=== PATIENT | female | born 1965 ===

== ENCOUNTER 2023-08-11 14:10 | Outpatient (AMB) | payer OTHER, SELFPAY ==
--- NOTE | 2023-08-11 14:55 | A.OFFVIS_ITS ---
Intake Vital Signs 08/11/23 14:56 Height 5 ft 3 in Weight 125 lb 3.561 oz BMI 22.2 BP 122/70 Blood Pressure Location Rt brachial Position Sitting Pulse 70 Pulse Source Pulse Oximeter Temp 97.3 F Temp Source Skin Pulse Oximetry (%) 97 Intake Visit Reasons: Fibromyalgia Intake Note: New pt presents today for FM consult. Previously seen by Dr Castillo in 2020. C/o pain in multiple areas. Pain started approx 7 years ago. 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 Accompanied by: Self / Same As Patient Allergies latex Adverse Reaction (Unknown, Verified 08/11/23 14:58) Unknown mepivacaine [From Carbocaine] Adverse Reaction (Unknown, Verified 08/11/23 14:58) Unknown propranolol Adverse Reaction (Unknown, Verified 08/11/23 14:58) Unknown sulfamethoxazole [From Bactrim] Adverse Reaction (Unknown, Verified 08/11/23 14:58) Unknown trimethoprim [From Bactrim] Adverse Reaction (Unknown, Verified 08/11/23 14:58) Unknown Medication List - Last Reconciled 08/11/23 by Neel Ramirez MD acetaminophen 500 mg PO Q6H PRN calcium carbonate-vitamin D3 500 mg-10 mcg (400 unit) (Calcium 500 With D) 1 tab PO BID cholecalciferol (vitamin D3) (Vitamin D3) 50 mcg PO DAILY fluticasone propionate 50 mcg/actuation 2 sprays intranasal DAILY ibuprofen 800 mg PO Q8H PRN loratadine 10 mg PO DAILY melatonin 5 mg PO BEDTIME polyethylene glycol 3350 (Gavilax) 17 grams PO DAILY sennosides (senna) 17.2 mg PO BID PRN HPI HPI Comments History of Present Illness Details This is a 57-year-old female with fibromyalgia who presents for evaluation. She used to see Dr. Castillo. Symptoms started approximately 7 years ago. Patient states that she has whole body pain. Her muscles, her joints. The majority of her pain is in her shoulders. In the past was found to have rotator cuff tendinitis and bursitis. Without any tears. She works in a bakery. She states that she used to go to the gym in the past but as soon as the pandemic hit, the gym closed and she was unable to go back to the gym. She has difficulty falling and staying asleep. She states that she follows up with a counselor regularly. Has never been evaluated by a psychiatrist [facility] Medical History (Updated 08/11/23 @ 15:21 by Neel Ramirez MD) Fibromyalgia Depression IBS (irritable bowel syndrome) Migraine with vertigo Anxiety History of lateral epicondylitis Venous insufficiency Cervical spinal stenosis Multiple joint pain Surgical History No history of previous surgery Family History Mother Diabetes Father Myocardial infarction Daughter Multiple sclerosis Sister Diabetes Brother Diabetes Social History Alcohol intake: current Alcohol intake frequency: holidays/special occasions only Patient Tobacco Use Status: Former Tobacco user Quit Date: 1990 Review of Systems Const Reports fatigue, Reports headache(s) and Reports weakness Eyes Reports dry eyes ENT Reports dizziness and Reports headache(s) GI Reports constipation Musc Reports arthralgias, Reports muscle weakness and Reports stiffness Skin/Breast Reports alopecia and Reports unusual bruising Neuro Reports dizziness, Reports headache(s) and Reports weakness Psych Reports abnormal sleep pattern, Reports anxiety and Reports depression Endo Reports fatigue Physical Exam Vital Signs: Last Vital Signs Temp 97.3 F 08/11/23 14:56 Pulse 70 08/11/23 14:56 BP 122/70 08/11/23 14:56 Pulse Ox 97 08/11/23 14:56 BMI result Body Mass Index 22.2 Const General: cooperative, healthy appearing and comfortable Nutritional Appearance: average body habitus Orientation/consciousness: patient oriented x3 Limitations: no limitations HEENT Head: Yes normocephalic and Yes atraumatic Mouth: moist mucous membranes Resp Effort & Inspection: normal respiratory effort and able to speak in complete sentences Auscultation: clear to auscultation bilaterally Cardio Rate: regular rate Rhythm: regular rhythm Heart sounds: S1 normal heart sound present Skin General skin exam: no rashes or lesions noted Neuro General: patient oriented x3 Extrem Other: Osteoarthritic changes of both hands with no active synovitis Normal nailfold capillaroscopy Normal range of motion of both shoulders without pain Few fibromyalgia tender points Negative rotator cuff provocative maneuvers bilaterally Results Reviewed Results Reviewed: Labs 10/2020? LOLA/RF/Lyme screen all negative? ESR 7? Labs 2017? CRP normal Assessment & Plan Assessment & Plan (1) Fibromyalgia: Code(s): M79.7 - Fibromyalgia Plan: 57-year-old female presents for evaluation of fibromyalgia. I do not see any evidence of an autoimmune rheumatic disease upon my evaluation. Discussed management of fibromyalgia with patient. Is a noninflammatory, non- autoimmune central afferent processing disorder leading to a diffuse pain syndrome. Patient follows up regularly with a psychologist. I suggested evaluation by psychiatrist. Try to follow sleep hygiene practices. Consider a referral for a sleep study by her PCP to evaluate for obstructive sleep apnea. Patient would benefit from increased physical activity, either through formal physical therapy or by joining a gym. Advised patient that she should start activity slowly and increase as tolerated. Consider low-impact exercises such as walking, aqua therapy stretching, yoga. Medications to treat fibromyalgia such as Cymbalta, Lyrica, ...etc can be tried by PCP. No need for follow-up with me unless new symptoms develop Plan I spent 20 minutes reviewing patient's chart, evaluating patient, ordering diagnostic workup, counseling patient and documenting in the chart Coding Level of Care Code New Pt Level 3 (76674) Diagnoses Fibromyalgia M79.7
[2023-08-11 14:56] VITALS: BP 122/70; PULSE 70; TEMP 36.3; O2SAT 97; BMI 22.2
== END 2023-08-11 15:38 | disposition home or self-care (01) ==
PROVIDERS: PCP Internal Medicine; Referring Provider Internal Medicine; Visit Provider Student in an Organized Health Care Education/Training Program
DX: M79.7 Fibromyalgia (principal)
CPT/HCPCS: 99203

== ENCOUNTER → 2023-08-11 14:10 | Outpatient (BNVA) | payer OTHER, SELFPAY | PROVIDERS: Visit Provider Student in an Organized Health Care Education/Training Program | DX: M79.7 Fibromyalgia (principal) | CPT/HCPCS: 99202 ==